=== PATIENT | female | born 1955 | race African-American/Black ===

== ENCOUNTER → 2024-10-21 | Outpatient (REF) | payer OTHER ==
[~2024-10-21] MED LIST: ALENDRONATE SOD70 MG PO; ALLOPURINOL100 MG PO; AMLODIPINE BESY10 MG PO; ASPIRIN81 MG PO; CALCIUM ACETAT667 MG PO; CILOSTAZOL100 MG PO; CLOPIDOGREL75 MG PO; DIOVAN160 MG PO; HYDRALAZINE HCL50 MG PO; HYDROCHLOROTHIA25 MG; METFORMIN HCL500 MG PO; METOPROLOL SUCC50 MG PO; MULTI-VITAMIN1 EACH PO; OS-CAL 500+D T1 EACH PO; SIMVASTATIN20 MG PO; ZOLPIDEM TARTRAT5 MG PO
[2024-10-21 10:54] LABS: BASOPHILS # (AUTO) 0.1 (0.0-0.1); BASOPHILS % 0.9 % (0.0-1.0); EOSINOPHILS # (AUTO) 0.2 (0.0-0.4); EOSINOPHILS % 2.7 % (0.0-6.0); HEMATOCRIT 31.6 % (34.2-44.1); HEMOGLOBIN 10.1 g/dL (12.0-16.0); LYMPHOCYTES # (AUTO) 2.3 (1.0-3.2); LYMPHOCYTES % 33.6 % (18.0-39.1); MEAN CORPUSCULAR HEMOGLOBIN 29.7 pg (28-32); MEAN CORPUSCULAR VOLUME 92.9 fL (81-99); MONOCYTES # (AUTO) 0.5 (0.2-0.8); MONOCYTES % 7.7 % (4.4-11.3); NEUTROPHILS # (AUTO) 3.7 (2.1-6.9); NEUTROPHILS % 54.8 % (38.7-80.0); PLATELET COUNT 206 x10e3/uL (140-360); RED CELL DISTRIBUTION WIDTH 14.6 % (11.7-14.4); WHITE BLOOD COUNT 6.72 x10e3/uL (4.8-10.8)
== END ==
LOC: LAB 10:42 → EDSTATUS 10-23 07:00
PROVIDERS: ATTEND Internal Medicine Gastroenterology
DX: Z01.812 Encounter for preprocedural laboratory examination (principal); I10 Essential (primary) hypertension; E11.9 Type 2 diabetes mellitus without complications; Z12.11 Encounter for screening for malignant neoplasm of colon
CPT/HCPCS: 36415; 85025